=== PATIENT | female | born 1985 | race African-American/Black ===

== ENCOUNTER 2021-10-03 01:12 | Inpatient (IN) ==
[2021-10-04] MEDS ORDERED: ONDANSETRON 4 MG/2 ML VIAL IV PRN ×2 (01:31→15:38)
[2021-10-04] MEDS ORDERED: MEPERIDINE 50 MG/1 ML VIAL IV PRN (01:31)
[2021-10-04] MEDS ORDERED: BUTORPHANOL 2 MG/ML VIAL IV PRN (01:31)
[2021-10-04 02:00] LABS: Basophils % 0.2 % (0.0-0.8); Eosinophils # 0.1 10*3/uL (0.0-0.87); Eosinophils % 0.6 % (0.00-10.9); Hematocrit 33.5 VOL% (35.7-47.0); Hemoglobin 10.7 GM/DL (12.0-16.0); Immature Granulocytes % 3.8 %; Lymphocytes # 2.7 10*3/uL (1.4-4.0); Lymphocytes % 20.2 % (21.3-54.2); Mean Corpuscular HGB Conc 31.9 GM/DL (32-36); Mean Corpuscular Volume 91.5 FL (87-102); Mean Platelet Volume 9.7 FL (9.6-12.0); Neutrophils % 59.2 % (38.7-73.9); Platelet Count 275 T/CUMM (130-400); Red Blood Count 3.66 MC/CUMM (3.8-5.5); Red Cell Distribution Width 14.5 % (9.3-17.3); White Blood Count 13.3 T/CUMM (4-12)
[2021-10-04 02:20] LABS: Alanine Aminotransferase 14 U/L (13-56); Albumin 2.8 G/DL (3.4-5.0); Alkaline Phosphatase 178 U/L (45-117); Aspartate Amino Transferase 14 U/L (0-37); Bilirubin,Total < 0.39 MG/DL (0.20-1.00); Blood Urea Nitrogen 11 MG/DL (7-18); Calcium 9.8 MG/DL (8.5-10.1); Carbon Dioxide 20 MMOL/L (21-32); Estimated Glom Filtration Rate 156 ML/MIN; Glucose 84 MG/DL (74-106); Potassium 3.8 MMOL/L (3.5-5.1); Sodium 136 MMOL/L (136-145); Total Protein 6.7 G/DL (6.4-8.2)
[2021-10-04 02:38] LABS: Eosinophils 1 % (0-10); Lymphocytes 19 % (20-55); Platelet Estimate Adequate; Segmented Neutrophils 66 % (50-85); Total Cells Counted 100
[2021-10-04] MEDS ORDERED: ePHEDrine 50 MG/ML VIAL IV PRN (09:07)
[2021-10-04] MEDS ORDERED: CITRIC ACID/SODIUM CITRATE 30 ML UDCUP PO ONE (09:07)
[2021-10-04] MEDS ORDERED: PROMETHAZINE 25 MG/1 ML VIAL IM PRN (09:07)
[2021-10-04] MEDS ORDERED: diphenhydrAMINE 50 MG/1 ML VIAL IV PRN (09:07)
[2021-10-04] MEDS ORDERED: FAMOTIDINE 20 MG/2 ML VIAL IV ONE (09:07)
[2021-10-04] MEDS ORDERED: NALOXONE 0.4 MG/ML VIAL IV PRN (09:07)
[2021-10-04] MEDS: LACTATED RINGERS 1,000 ML IV SCH ×3 (09:21→17:45)
[2021-10-04] MEDS ORDERED: fentaNYL 2 MCG/ROPIV 0.2% EPID 100 ML EPIDURAL SCH (09:30)
[2021-10-04] MEDS ORDERED: OXYTOCIN/LR 20 UNIT/1,000 ML BAG IV SCH (09:30)
[2021-10-04] MEDS ORDERED: OXYTOCIN/LR 20 UNIT/1,000 ML BAG IV ONE ×2 (10:42→15:38)
[2021-10-04 11:04] LABS: Bilirubin,Urine Negative (Negative); Blood, Urine Negative (Negative); Glucose,Urine (UA) Negative (Negative); Ketones,Urine 5 mg/dL (Negative); Mucus,Urine Occasional /LPF (Occasional); Nitrite,Urine Negative (Negative); Protein,Urine Negative; RBC,Urine 5 /HPF (0-4); Squamous Epithelial Cell,Urine Occasional /HPF (0-10); Urine Appearance CLEAR (Clear); Urine Color Yellow (Yellow); Urine Specific Gravity 1.013 (1.001-1.035); Urine Urobilinogen < 2.0 EU/DL (<2.0)
[2021-10-04] MEDS ORDERED: METHYLERGONOVINE 0.2 MG/1 ML AMP ONE (13:13)
[2021-10-04 14:14] LABS: Cord Arterial Blood HCO3 21.6 MMOL/L
[2021-10-04 14:17] LABS: Cord Venous Blood HCO3 22.4 MMOL/L; Cord Venous Blood PCO2 44.3 MMHG; Cord Venous Blood PO2 21.2 MMHG
[2021-10-04] MEDS ORDERED: HYDROCORTISONE 2.5% RECTAL CREAM 30 GM TUBE TOP PRN (15:38)
[2021-10-04] MEDS ORDERED: WITCH HAZEL PADS 100/JAR TOP PRN (15:38)
[2021-10-04] MEDS ORDERED: RHO(D) IMMUNE GLOBULIN 300 MCG SYRINGE IM ONE (15:38)
[2021-10-04] MEDS ORDERED: LANOLIN 50% CREAM 0.3 OZ TUBE TOP PRN (15:38)
[2021-10-04] MEDS ORDERED: oxyCODONE/ACETAMINOPHEN 5-325 MG TABLET PO PRN (15:38)
[2021-10-04] MEDS ORDERED: ACETAMINOPHEN 325 MG TABLET PO PRN (15:38)
[2021-10-04] MEDS ORDERED: BENZOCAINE 20%/MENTHOL 0.5% SPRAY 56 GM CAN TOP PRN (15:38)
[2021-10-04] MEDS ORDERED: DIPH/TET/ACEL PERT BOOSTER VACCINE 0.5 ML VIAL IM ONE (15:38)
[2021-10-04] MEDS ORDERED: BISACODYL 10 MG SUPP RECTAL PRN (15:38)
[2021-10-04] MEDS ORDERED: MEASLES/MUMPS/RUBELLA VACCINE 0.5 ML VIAL SUBCUT ONE (15:38)
[2021-10-04] MEDS: IBUPROFEN 800 MG TABLET PO PRN (18:22)
[2021-10-04] MEDS: oxyCODONE/ACETAMINOPHEN 5-325 MG TABLET PO PRN (19:35)
[2021-10-04] MEDS: DOCUSATE SODIUM 100 MG CAPSULE PO SCH (21:15)
[2021-10-05] MEDS: IBUPROFEN 800 MG TABLET PO PRN ×3 (04:02→17:46)
[2021-10-05] MEDS: oxyCODONE/ACETAMINOPHEN 5-325 MG TABLET PO PRN ×3 (04:05→17:45)
[2021-10-05 05:31] LABS: Basophils % 0.2 % (0.0-0.8); Eosinophils # 0.1 10*3/uL (0.0-0.87); Eosinophils % 0.4 % (0.00-10.9); Hematocrit 30.2 VOL% (35.7-47.0); Hemoglobin 9.9 GM/DL (12.0-16.0); Immature Granulocytes % 2.2 %; Immature Granulocytes Absolute 0.43 #; Lymphocytes # 2.5 10*3/uL (1.4-4.0); Lymphocytes % 12.7 % (21.3-54.2); Mean Corpuscular HGB Conc 32.8 GM/DL (32-36); Mean Corpuscular Volume 90.7 FL (87-102); Mean Platelet Volume 9.9 FL (9.6-12.0); Neutrophils % 73.5 % (38.7-73.9); Platelet Count 263 T/CUMM (130-400); Red Blood Count 3.33 MC/CUMM (3.8-5.5); Red Cell Distribution Width 14.1 % (9.3-17.3); White Blood Count 19.9 T/CUMM (4-12)
[2021-10-05] MEDS: DOCUSATE SODIUM 100 MG CAPSULE PO SCH ×2 (10:57→20:48)
[2021-10-06] MEDS: oxyCODONE/ACETAMINOPHEN 5-325 MG TABLET PO PRN ×2 (01:25→08:09)
[2021-10-06 07:15] VITALS: BP 139/79
[2021-10-06] MEDS: DOCUSATE SODIUM 100 MG CAPSULE PO SCH (08:08)
[2021-10-06] MEDS: IBUPROFEN 800 MG TABLET PO PRN (08:09)
[2021-10-06] MEDS ORDERED: INFLUENZA VIRUS VACCINE 0.5 ML SYRINGE IM ONE (09:00)
== END 2021-10-06 12:45 | disposition home or self-care (01) | DRG 560 ==
LOC: N.LD 01:12 → N.OB 10-04 17:45
PROVIDERS: ADMIT Obstetrics & Gynecology; ATTEND Obstetrics & Gynecology